=== PATIENT | male | born 2000 | race Caucasian/White ===

== ENCOUNTER 2024-03-31 20:09 | Emergency (ER) | payer BC, MEDICAID ==
[~2024-03-31] VITALS: Ht 175.3 cm; Wt 72.7 kg
[2024-03-31 20:39] LABS: Basophils # (auto) 0.1 10 ^3/uL (0-0.2); Basophils % (auto) 0.6 % (0.0-2.0); Eosinophils # (auto) 0 10 ^3/uL (0-0.8); Eosinophils % (auto) 0.3 % (0.0-7.0); Hematocrit 43.2 % (41.0-53.0); Hemoglobin 14.7 g/dL (13.5-17.5); Lymphocytes # (auto) 0.8 10 ^3/uL (0.4-5.4); Lymphocytes % (auto) 7.1 % (10.0-50.0); Mean Corpuscular Hemoglobin 28.8 pg (28.0-32.0); Mean Corpuscular Volume 84.5 fL (80.0-100.0); Monocytes % (auto) 8.4 % (0.0-12.0); Neutrophils # (auto) 9.9 10 ^3/uL (1.6-8.6); Neutrophils % (auto) 83.6 % (37.0-80.0); Red Blood Cells 5.11 10^6/uL (4.5-5.90); White Blood Cell 11.8 10^3/uL (4.4-10.8)
[2024-03-31 20:51] LABS: Alanine Aminotransferase 27 U/L (7-40); Albumin 4.9 g/dL (3.2-4.8); Alkaline Phosphatase 76 U/L (46-116); Anion Gap 8 (5-15); Aspartate Aminotransferase 20 U/L (13-40); BUN/Creatinine Ratio 13.5 (10.0-20.0); Bilirubin, Total 1.2 mg/dL (0.2-1.0); Blood Urea Nitrogen 13 mg/dL (9-23); Calcium 9.8 mg/dL (8.5-10.1); Carbon Dioxide 24 mmol/L (20-30); Chloride 104 mmol/L (98-107); Glucose 94 mg/dL (74-106); Magnesium 1.8 mg/dL (1.6-2.6); Potassium 3.3 mmol/L (3.5-5.1); Sodium 136 mmol/L (136-145); Total Protein 7.7 g/dL (5.7-8.2)
[2024-03-31 21:21] LABS: INR 1.03 (0.9-1.15); Partial Thromboplastin Time 30.7 SEC (24.5-34.5); Prothrombin Time 10.9 sec (9.3-11.8)
[2024-03-31] MEDS ORDERED: ACET500T58 PO (23:29)
[2024-03-31] MEDS ORDERED: IBUP-1455 PO (23:29)
[2024-03-31] MEDS ORDERED: ZOFR4T PO (23:29)
[2024-04-01 01:00] VITALS: BP 121/74; PULSE 78; RESP 16; O2SAT 99
[2024-04-01] MEDS: SODIUM CHLORIDE 0.9% 1,000 ML IV ONE (01:01)
[2024-04-01] MEDS: ONDANSETRON ODT 4 MG TAB PO ONE (01:05)
[2024-04-01] MEDS: ACETAMINOPHEN 500 MG TAB PO ONE (01:05)
== END 2024-04-01 01:35 | disposition home or self-care (01) ==
LOC: ER 20:09
DX: R07.89 Other chest pain (principal); Z79.899 Other long term (current) drug therapy
CPT/HCPCS: 36415; 71045; 80053; 83735; 83880; 84484; 85025; 85610; 85730; 93005; 99285; Q0162